=== PATIENT | female | born 1970 | race Caucasian/White ===

== ENCOUNTER 2018-04-18 14:52 | Emergency (ER) | payer SELFPAY ==
[~2018-04-18] VITALS: Ht 175.3 cm; Wt 63.6 kg
[2018-04-18 14:59] VITALS: BP 118/90; Ht 175.3 cm; Wt 63.6 kg
[2018-04-18] MEDS ORDERED: ULTRAM50 MG PO (15:55)
== END 2018-04-18 16:37 | disposition home or self-care (01) ==
LOC: D.ER 14:52
DX: B00.89 Other herpesviral infection (principal); F17.200 Nicotine dependence, unspecified, uncomplicated

== ENCOUNTER 2018-08-07 17:01 | Emergency (ER) | payer MEDICAID ==
[~2018-08-07 17:01] MED LIST: ULTRAM50 MG PO
[2018-08-07 17:05] VITALS: BMI 20.4
[2018-08-07] MEDS ORDERED: REXULTI1 MG PO (17:09)
[2018-08-07] MEDS ORDERED: LEXAPRO20 MG PO (17:09)
[2018-08-07] MEDS ORDERED: VOLTAREN75 MG PO (18:28)
[2018-08-07 19:01] VITALS: BP 118/60
== END 2018-08-07 19:03 | disposition home or self-care (01) ==
LOC: D.ER 17:01
DX: S80.01XA Contusion of right knee, initial encounter (principal); W50.0XXA Accidental hit or strike by another person, initial encounter; Y93.89 Activity, other specified; Y92.89 Other specified places as the place of occurrence of the external cause

== ENCOUNTER → 2019-01-29 13:25 | Outpatient (CLI) | payer OTHER ==
[~2019-01-29 13:25] MED LIST changes: +LEXAPRO20 MG PO; +REXULTI1 MG PO; +VOLTAREN75 MG PO
== END | disposition home or self-care (01) ==
LOC: D.RAD 13:00
PROVIDERS: ATTEND Pediatrics
DX: Z02.71 Encounter for disability determination (principal)

== ENCOUNTER 2019-10-05 16:15 | Emergency (ER) | payer SELFPAY ==
[~2019-10-05] VITALS: Ht 175.3 cm; Wt 59.5 kg
[2019-10-05 16:19] VITALS: Ht 175.3 cm; Wt 59.5 kg
[2019-10-05] MEDS ORDERED: HYDROCODON-ACE1 EAC7 PO (16:48)
[2019-10-05 18:43] VITALS: BP 123/89
== END 2019-10-05 17:15 | disposition home or self-care (01) ==
LOC: D.ER 16:15
DX: S93.401A Sprain of unspecified ligament of right ankle, initial encounter (principal); S82.891A Other fracture of right lower leg, initial encounter for closed fracture; W22.09XA Striking against other stationary object, initial encounter; Y93.9 Activity, unspecified; Y92.9 Unspecified place or not applicable